=== PATIENT | male | born 1995 | race Caucasian/White ===

== ENCOUNTER → 2021-11-16 | Outpatient (CLI) | payer BC ==
[2021-11-16 18:45] LABS: ALT 37 U/L (10-49); AST 37 U/L (14-35); African American GFR (CKD) 103.8 (60.0-200.0); Albumin 4.6 g/dL (3.8-4.9); Alkaline Phosphatase 56 U/L (41-126); Blood Urea Nitrogen 19.6 mg/dL (9.0-27.0); Calcium 9.9 mg/dL (8.7-10.3); Carbon Dioxide 24.6 mmol/L (20.0-27.5); Chloride 105 mmol/L (96-109); Globulin 3.1 g/dL (1.6-3.3); Glucose 97 mg/dL (70-110); Non-African American GFR(CKD) 89.5 (60.0-200.0); Potassium 4.9 mmol/L (3.5-5.5); Sodium 140 mmol/L (135-145); Total Protein 7.7 g/dL (6.2-8.2)
[2021-11-16 19:09] LABS: Chol/HDL Ratio 3.83 Ratio
== END | disposition home or self-care (01) ==
LOC: LABWHC1 09:56
PROVIDERS: ATTEND Chiropractor
DX: Z00.00 Encounter for general adult medical examination without abnormal findings (principal)
CPT/HCPCS: 36415; 80053; 80061; 83721; 84402; 84403; 84443

== ENCOUNTER → 2023-11-21 | Outpatient (CLI) | payer BC ==
[2023-11-21 16:52] LABS: HCT 45.7 % (39.6-50.0); HGB 15.4 g/dL (13.0-17.0); MCH 29.2 pg (27.0-32.0); MCHC 33.7 g/dL (32.0-37.0); MCV 86.6 FL (80.0-97.0); Mean Platelet Volume 10.3 FL (9.5-12.2); NRBC Per 100 WBC 0 X 10*3/uL (0.00-0.01); Platelet Count 259 X 10*3/uL (140-440); RBC 5.28 X 10*6/uL (4.40-5.60); RDW 11.9 % (11.5-14.5); WBC 13.69 X 10*3/uL (4.50-10.00)
== END | disposition home or self-care (01) ==
LOC: LABWHC1 13:22
PROVIDERS: ATTEND Chiropractor
DX: Z00.00 Encounter for general adult medical examination without abnormal findings (principal)
CPT/HCPCS: 36415; 84402; 84403; 85027